=== PATIENT | female | born 1985 | race Caucasian/White ===

== ENCOUNTER → 2024-02-02 | Outpatient (CLI) | payer BC ==
[2024-02-03 02:21] LABS: Basophils # (A) 0.04 X 10*3/uL (0.00-0.10); Basophils % (A) 0.4 %; Eosinophils # (A) 0.23 X 10*3/uL (0.04-0.35); Eosinophils % (A) 2.4 %; HCT 38.3 % (37.2-46.3); HGB 12.4 g/dL (12.0-15.0); Lymphocytes # (A) 2.87 X 10*3/uL (0.90-5.00); Lymphocytes % (A) 29.3 %; MCHC 32.4 g/dL (32.0-37.0); MCV 92.5 FL (80.0-97.0); Monocytes # (A) 0.73 X 10*3/uL (0.20-1.00); Monocytes % (A) 7.5 %; NRBC Per 100 WBC 0 X 10*3/uL (0.00-0.01); Neutrophils # (A) 5.88 X 10*3/uL (1.80-7.70); Neutrophils % (A) 60.1 %; Platelet Count 199 X 10*3/uL (140-440); RBC 4.14 X 10*6/uL (4.10-5.20); WBC 9.78 X 10*3/uL (4.50-10.00)
[2024-02-03 02:37] LABS: Anion Gap 12.2 mmol/L (4.00-12.00); Carbon Dioxide 22.8 mmol/L (21.6-31.8); Potassium 3.7 mmol/L (3.5-5.5)
== END | disposition home or self-care (01) ==
LOC: LABPAT 15:52
PROVIDERS: ATTEND Orthopaedic Surgery
DX: Z01.812 Encounter for preprocedural laboratory examination (principal); M23.92 Unspecified internal derangement of left knee
CPT/HCPCS: 80051; 85025

== ENCOUNTER → 2024-02-08 | Day surgery (SDC) | payer BC ==
[2024-02-02 13:46] VITALS: BMI 39.4
--- NOTE | 2024-02-07 23:23 | HP ---
HISTORY AND PHYSICAL DATE OF SURGERY: 02/08/2024. HISTORY OF PRESENT ILLNESS: Leigh Zelaya is a 38-year-old patient seen with progressive left knee pain. Options were discussed with her. She elected to proceed with arthroscopy. Consent was obtained. Medical clearance was provided by Dr. Camarena. PAST MEDICAL HISTORY: Hypertension, hyperlipidemia, coronary artery disease. PAST SURGICAL HISTORY: Tonsillectomy, oophorectomy, cholecystectomy, stent placement. DAILY MEDICATIONS: 1. Rosuvastatins on bone. 2. Omeprazole. 3. Cozaar. ALLERGIES: None. SOCIAL HISTORY: She denies tobacco use. PHYSICAL EVALUATION OF THE LEFT KNEE: Range of motion is 0 to 120 degrees. Mild effusion. Tenderness, medial joint line. Positive medial Lj's. Ligaments stable. Hip rotation is without pain. Distal neurovascular exam is intact. IMAGING STUDIES: Left knee radiographs revealed mild osteoarthritis. Left knee MRI revealed a medial meniscal tear. IMPRESSION: 1. Internal derangement of left knee with medial meniscal tear. 2. Hypothyroidism. 3. Hyperlipidemia. PLAN: Left knee arthroscopy with partial medial meniscectomy and debridement. MMODL / IJN: [id number] /
[~2024-02-08] MED LIST: DEXAMETHASONE SOD PHOSPHATE 4 MG/ML 1 ML VIAL IV ONE; HYDROmorphone (PF) 1 MG/ML ONE; HYDROmorphone 0.5 MG/0.5 ML SYRINGE IVP PRN; LIDOCAINE 1% INJ 10MG/ML (20 ML MDV) ONE; MIDAZOLAM 2 MG/2 ML VIAL ONE; ONDANSETRON 4 MG/2 ML VIAL IVP ONE; PHENYLEPHRINE 10 MG/ML VIAL ONE; PROPOFOL 10 MG/ML 20 ML VIAL IV ONE; SCOPOLAMINE 1 MG/72 HR PATCH TRANSDERM ONE; SUCCINYLCHOLINE CHLORIDE 200 MG/10 ML VIAL IV ONE; fentaNYL (PF) 50 MCG/ML 2 ML AMP IV PRN; fentaNYL (PF) 50 MCG/ML 2 ML AMP ONE
[2024-02-08] MEDS: IV FLUID CONTINUATION 1,000 ML IV ONE (10:23)
[2024-02-08] MEDS: LACTATED RINGERS 1,000 ML IV SCH (10:59)
[2024-02-08] MEDS: ONDANSETRON 4 MG/2 ML VIAL IVP STA (11:00)
[2024-02-08] MEDS: DEXAMETHASONE SOD PHOSPHATE 4 MG/ML 1 ML VIAL IVP STA (11:00)
[2024-02-08] MEDS: BUPIVACAINE (PF) 0.25% 30 ML VIAL MISCELLANE ONE (11:38)
[2024-02-08 12:12] VITALS: TEMP 97
--- NOTE | 2024-02-08 12:15 | P.OP ---
Date of Procedure: 02/08/24 Preoperative Diagnosis: Internal derangement left knee Postoperative Diagnosis: 1. Tear medial and lateral meniscus left knee 2. Grade IV chondromalacia medial femoral condyle left knee 3. Grade IV chondromalacia lateral tibial plateau left knee 4. Reactive synovitis medial, lateral and suprapatellar compartments left knee 5. Grade II chondromalacia patella left knee Procedure(s) Performed: 1. Arthroscopic partial medial and lateral meniscectomy left knee 2. Arthroscopic microfracture medial femoral condyle left knee 3. Arthroscopic microfracture lateral tibial plateau left knee 4. Arthroscopic partial synovectomy medial, lateral and suprapatellar compartments left knee 5. Arthroscopic chondroplasty patella left knee Anesthesia: GAURAVA, local Surgeon: Barry Sales Estimated Blood Loss (ml): 5 Pathology: none sent Condition: stable Disposition: PACU Indications for Procedure: 38-year-old patient seen with progressive left knee pain. After having treatment options discussed, she elected to proceed with arthroscopy. Operative Findings: See description of procedure Description of Procedure: Patient was taken to the operative suite. Patient underwent a general anesthetic by the department of anesthesia. Patient was given preoperative antibiotics. The left lower extremity was placed in a well-padded arthroscopic leg blanco. The left leg was prepped and draped in the normal sterile orthopedic fashion. A lateral parapatellar and suprapatellar incision was made. Trochars were inserted. Arthroscopy was initiated. Suprapatellar pouch revealed diffuse thick reactive synovitis. The patellofemoral joint appeared to articulate congruently. There was grade II chondromalacia patella with diffuse osteochondral flap tears involving predominantly the lateral facet. The scope was guided into the medial gutter. No loose bodies or plica were identified. The scope was then guided into the medial compartment. A medial parapatellar incision was made. Trocar inserted followed by probe. There was a radial tear posterior horn medial meniscus. There was 1 area of grade III/IV chondromalacia along the anterior medial aspect of the distal femoral condyle. There was some thick reactive synovitis anteriorly. I performed a partial medial meniscectomy getting down to stable meniscal tissue. I performed a chondroplasty of the medial femoral condyle area getting down to stable osteochondral tissue. I performed a partial synovectomy decompressing the reactive synovitis. I did note an area of exposed bone medial femoral condyle measuring less than a centimeter. I did use a microfracture awl and I performed a microfracture to that area penetrating the bone with resultant bleeding at the microfracture site. The residual meniscus was probed and was found to be stable. The residual osteochondral surface was stable. There was good decompression of the synovitis. Scope and probe were then guided into the intercondylar notch. Cruciates were identified, probed and found to be stable. The scope and probe were then guided into lateral compartment. There was a radial tear along the posterior horn lateral meniscus. There were grade III/IV chondromalacia changes along the lateral tibial plateau medially with osteochondral flap tears present. There was thick reactive synovitis anteriorly. I performed a partial lateral meniscectomy getting down to stable meniscal tissue. I performed a chondroplasty lateral tibial plateau getting down to stable osteochondral tissue. I performed a partial synovectomy decompressing the reactive synovitis anteriorly. I did note an area of exposed bone in the medial tibial plateau measuring about a centimeter. I introduced a microfracture awl and I performed a microfracture to that area penetrating the bone with resultant bleeding at the microfracture site. The residual meniscus was probed and was found to be stable. The residual osteochondral surface was stable. There was good decompression of the synovitis. The scope was in guided back into the suprapatellar compartment. I introduced a motorized shaver into the suprasellar compartment. I debrided some piecemeal fragments of meniscus I encountered. I performed a chondroplasty of the patella getting down to stable osteochondral tissue. I performed a partial synovectomy decompressing the thick reactive synovitis. The residual osteochondral surface of the patella was stable. There was good decompression of the synovitis. I took 1 more look around the entire knee, no residual debris. Instruments were now removed from the joint. The joint was infiltrated with .25% Marcaine. Steri-Strips were applied to the portal sites. Sterile dressings were applied. The patient was placed into a TORIBIO hose. No tourniquet was utilized. The patient was awakened, transferred to a bed and taken to recovery stable satisfactory condition.
[2024-02-08] MEDS: HYDROmorphone 0.5 MG/0.5 ML SYRINGE IVP SCH (12:16)
[2024-02-08 12:23] VITALS: RESP 16
[2024-02-08] MEDS: HYDROcodone/APAP 5-325MG 1 EACH TAB PO STA (13:35)
[2024-02-08 13:52] VITALS: BP 102/63; PULSE 73
== END | disposition home or self-care (01) ==
LOC: OR 10:10
PROVIDERS: ATTEND Orthopaedic Surgery
CPT/HCPCS: 81025

== ENCOUNTER → 2024-07-19 | Outpatient (CLI) | payer BC ==
[2024-07-19 10:23] LABS: Chol/HDL Ratio 2.88 Ratio
== END | disposition home or self-care (01) ==
LOC: LABWHC1 07:04
PROVIDERS: ATTEND Internal Medicine Cardiovascular Disease
DX: E78.5 Hyperlipidemia, unspecified (principal)
CPT/HCPCS: 36415; 80061